=== PATIENT | female | born 1955 | race American Indian/Alaskan Native ===

== ENCOUNTER 2017-06-16 16:14 | Emergency (ER) | payer MEDICARE ==
--- NOTE | 2017-06-16 18:57 | Emergency Department Report ---
ED General Adult HPI - General Chief complaint: Weakness Stated complaint: GENERAL WEAKNESS Time Seen by Provider: 06/16/17 18:46 Source: EMS (ems notes not available at time of chart dictation), RN notes reviewed Mode of arrival: Stretcher Limitations: Other (patient is awake, follows commands, is profoundly dysarthric , cannot offer any history, there is no family available for corroborating information, there is no enclosed information from her personal group home) - History of Present Illness Initial comments: Patient arrived only with list of her prescription medications. This is a 62-year-old female who was previously unknown to me, has a history of hypertension, end-stage renal disease (enclosed paperwork does not clarify who her display designer is, and it does not clarify what today's the patient receives dialysis." Patient may also have a history of dementia. Patient is sent to the ER from personal group home for weakness, debility, decreased ability to ambulate. The patient is awake, and follows commands, and is able to indicate that she has no headache, neck pain, chest pain, abdominal pain, or urinary symptoms. Given that she is nonverbal, the patient is unable to elaborate on exacerbating or relieving factors. -: days(s) Consistency: constant Improves with: other (as per history of present illness) Worsens with: other (history of present illness) Associated Symptoms: confusion, weakness - Related Data Home Medications Medication Instructions Recorded Confirmed Last Taken Aspirin/Dipyridamole [Aggrenox] 1 cap PO BID 06/16/17 06/16/17 06/15/17 Cinacalcet HCl [Sensipar] 60 mg PO DAILY 06/16/17 06/16/17 06/15/17 Donepezil [Aricept] 10 mg PO DAILY 06/16/17 06/16/17 06/15/17 Ergocalciferol(Vitamin D2)(Nf) 50,000 units PO QMONTH 06/16/17 06/16/17 06/15/17 [Vitamin D (Nf)] Fluticasone [Flonase] 1 spray INNOSTRIL DAILY 06/16/17 06/16/17 06/15/17 Gabapentin [Neurontin] 100 mg PO BID 06/16/17 06/16/17 06/15/17 Lisinopril [Zestril TAB] 20 mg PO DAILY 06/16/17 06/16/17 06/15/17 Loratadine [Claritin] 10 mg PO DAILY 06/16/17 06/16/17 06/15/17 Memantine [Namenda] 10 mg PO BID 06/16/17 06/16/17 06/15/17 PARoxetine [Paxil] 10 mg PO DAILY 06/16/17 06/16/17 06/15/17 Sevelamer Carbonate [Renvela] 1,600 mg PO TID 06/16/17 06/16/17 06/15/17 Simvastatin [Zocor TAB] 40 mg PO DAILY 06/16/17 06/16/17 06/15/17 Vit B Cplx #11/FA/C/Biot/Zn Ox 1 tab PO DAILY 06/16/17 06/16/17 06/15/17 [Dialyvite with Zinc Tablet] Allergies Allergy/AdvReac Type Severity Reaction Status Date / Time No Known Allergies Allergy Verified 06/16/17 19:55 ED Review of Systems ROS: Stated complaint: GENERAL WEAKNESS Other details as noted in HPI Comment: Unobtainable due to pts medical conditions ED Past Medical Hx - Past Medical History Previous Medical History?: Yes Hx CVA: Yes Additional medical history: MELISSA - Surgical History Additional Surgical History: MELISSA - Social History Smoking Status: Unknown if ever smoked - Medications Home Medications: Home Medications Medication Instructions Recorded Confirmed Last Taken Type Aspirin/Dipyridamole [Aggrenox] 1 cap PO BID 06/16/17 06/16/17 06/15/17 History Cinacalcet HCl [Sensipar] 60 mg PO DAILY 06/16/17 06/16/17 06/15/17 History Donepezil [Aricept] 10 mg PO DAILY 06/16/17 06/16/17 06/15/17 History Ergocalciferol(Vitamin D2)(Nf) 50,000 units PO QMONTH 06/16/17 06/16/17 History [Vitamin D (Nf)] Fluticasone [Flonase] 1 spray INNOSTRIL DAILY 06/16/17 06/16/17 06/15/17 History Gabapentin [Neurontin] 100 mg PO BID 06/16/17 06/16/17 06/15/17 History Lisinopril [Zestril TAB] 20 mg PO DAILY 06/16/17 06/16/17 06/15/17 History Loratadine [Claritin] 10 mg PO DAILY 06/16/17 06/16/17 06/15/17 History Memantine [Namenda] 10 mg PO BID 06/16/17 06/16/17 06/15/17 History PARoxetine [Paxil] 10 mg PO DAILY 06/16/17 06/16/17 06/15/17 History Sevelamer Carbonate [Renvela] 1,600 mg PO TID 06/16/17 06/16/17 06/15/17 History Simvastatin [Zocor TAB] 40 mg PO DAILY 06/16/17 06/16/17 06/15/17 History Vit B Cplx #11/FA/C/Biot/Zn Ox 1 tab PO DAILY 06/16/17 06/16/17 06/15/17 History [Dialyvite with Zinc Tablet] ED Physical Exam - General Limitations: Physical Limitation, Other (as per history of present illness) General appearance: alert - Eye Eye exam: Present: normal appearance, EOMI - ENT ENT exam: Present: mucous membranes dry - Neck Neck exam: Present: normal inspection, full ROM. Absent: tenderness, meningismus - Respiratory Respiratory exam: Present: normal lung sounds bilaterally. Absent: respiratory distress, chest wall tenderness - Cardiovascular Cardiovascular Exam: Present: regular rate, normal rhythm, normal heart sounds. Absent: bradycardia, tachycardia, irregular rhythm, systolic murmur, diastolic murmur, rubs, gallop - GI/Abdominal GI/Abdominal exam: Present: soft, normal bowel sounds. Absent: distended, tenderness, guarding, rebound, rigid, pulsatile mass - Extremities Exam Extremities exam: Present: normal inspection, other (left upper extremity AV fistula noted, appropriate thrill noted, no redness, pus or streaking) - Back Exam Back exam: Present: normal inspection. Absent: CVA tenderness (L) - Neurological Exam Neurological exam: Present: alert, motor sensory deficit (his weakness in the right upper and right lower extremity. Patient has 5 out of 5 strength left upper and left lower extremity, intact sensation to light touch left upper and left lower extremity, moderately dysarthric, no facial droop) - Psychiatric Psychiatric exam: Present: other (patient is dysarthric) - Skin Skin exam: Present: warm, dry, intact, normal color. Absent: rash ED Course Vital Signs 06/16/17 06/16/17 06/16/17 18:23 20:01 20:03 Temperature 98.8 F Pulse Rate 81 79 79 Respiratory 18 18 Rate Blood Pressure 151/80 Blood Pressure 156/78 [Right] O2 Sat by Pulse 95 97 Oximetry ED Medical Decision Making - Lab Data Result diagrams: 06/16/17 19:02 06/16/17 19:02 Vital Signs 06/16/17 06/16/17 06/16/17 18:23 20:01 20:03 Temperature 98.8 F Pulse Rate 81 79 79 Respiratory 18 18 Rate Blood Pressure 151/80 Blood Pressure 156/78 [Right] O2 Sat by Pulse 95 97 Oximetry Lab Results 06/16/17 06/16/17 06/16/17 Range/Units 19:02 19:02 19:02 WBC 7.7 (4.5-11.0) K/mm3 RBC 5.10 H (3.65-5.03) M/mm3 Hgb 13.2 (10.1-14.3) gm/dl Hct 43.1 H (30.3-42.9) % MCV 85 (79-97) fl MCH 26 L (28-32) pg MCHC 31 (30-34) % RDW 18.3 H (13.2-15.2) % Plt Count 414 (140-440) K/mm3 Lymph % (Auto) 12.0 L (13.4-35.0) % Jessamine % (Auto) 8.0 H (0.0-7.3) % Eos % (Auto) 1.0 (0.0-4.3) % Baso % (Auto) 1.1 (0.0-1.8) % Lymph # 0.9 L (1.2-5.4) K/mm3 Jessamine # 0.6 (0.0-0.8) K/mm3 Eos # 0.1 (0.0-0.4) K/mm3 Baso # 0.1 (0.0-0.1) K/mm3 Seg Neutrophils % 77.9 H (40.0-70.0) % Seg Neutrophils # 6.0 (1.8-7.7) K/mm3 PT 15.0 H (12.2-14.9) Sec. INR 1.12 (0.87-1.13) APTT 30.3 (24.2-36.6) Sec. Thrombin Time 18.3 (15.1-19.6) Sec. Sodium 143 (137-145) mmol/L Potassium 4.1 (3.6-5.0) mmol/L Chloride 95.9 L (98-107) mmol/L Carbon Dioxide 25 (22-30) mmol/L Anion Gap 26 mmol/L BUN 46 H (7-17) mg/dL Creatinine 6.6 H (0.7-1.2) mg/dL Estimated GFR 8 ml/min BUN/Creatinine Ratio 6.96 % Glucose 99 (65-100) mg/dL Calcium 8.8 (8.4-10.2) mg/dL Total Bilirubin 0.40 (0.1-1.2) mg/dL AST 17 (5-40) units/L ALT 8 (7-56) units/L Alkaline Phosphatase 315 H (35-129) units/L Total Creatine Kinase (30-135) units/L CK-MB (CK-2) (0.0-4.0) ng/mL CK-MB (CK-2) Rel Index (0-4) Troponin T (0.00-0.029) ng/mL Total Protein 7.9 (6.3-8.2) g/dL Albumin 3.5 L (3.9-5) g/dL Albumin/Globulin Ratio 0.8 % Triglycerides (2-149) mg/dL Cholesterol (50-199) mg/dL LDL Cholesterol Direct (50-130) mg/dL HDL Cholesterol (40-59) mg/dL Cholesterol/HDL Ratio % // Range/Units 19:02 WBC (4.5-11.0) K/mm3 RBC (3.65-5.03) M/mm3 Hgb (10.1-14.3) gm/dl Hct (30.3-42.9) % MCV (79-97) fl MCH (28-32) pg MCHC (30-34) % RDW (13.2-15.2) % Plt Count (140-440) K/mm3 Lymph % (Auto) (13.4-35.0) % Jessamine % (Auto) (0.0-7.3) % Eos % (Auto) (0.0-4.3) % Baso % (Auto) (0.0-1.8) % Lymph # (1.2-5.4) K/mm3 Jessamine # (0.0-0.8) K/mm3 Eos # (0.0-0.4) K/mm3 Baso # (0.0-0.1) K/mm3 Seg Neutrophils % (40.0-70.0) % Seg Neutrophils # (1.8-7.7) K/mm3 PT (12.2-14.9) Sec. INR (0.87-1.13) APTT (24.2-36.6) Sec. Thrombin Time (15.1-19.6) Sec. Sodium (137-145) mmol/L Potassium (3.6-5.0) mmol/L Chloride (98-107) mmol/L Carbon Dioxide (22-30) mmol/L Anion Gap mmol/L BUN (7-17) mg/dL Creatinine (0.7-1.2) mg/dL Estimated GFR ml/min BUN/Creatinine Ratio % Glucose (65-100) mg/dL Calcium (8.4-10.2) mg/dL Total Bilirubin (0.1-1.2) mg/dL AST (5-40) units/L ALT (7-56) units/L Alkaline Phosphatase (35-129) units/L Total Creatine Kinase 122 (30-135) units/L CK-MB (CK-2) 2.3 (0.0-4.0) ng/mL CK-MB (CK-2) Rel Index 1.8 (0-4) Troponin T 0.060 H (0.00-0.029) ng/mL Total Protein (6.3-8.2) g/dL Albumin (3.9-5) g/dL Albumin/Globulin Ratio % Triglycerides 130 (2-149) mg/dL Cholesterol 210 H (50-199) mg/dL LDL Cholesterol Direct 86 (50-130) mg/dL HDL Cholesterol 98 H (40-59) mg/dL Cholesterol/HDL Ratio 2.14 % - EKG Data -: EKG Interpreted by Ny - EKG Data 06/16/17 21:09 Normal sinus, left axis deviation, QTC prolonged at 479 ms, abnormal EKG, not morphologically consistent with systemic - Radiology Data Radiology results: report reviewed, image reviewed X-ray the chest is negative. Noncontrast CT scan of the brain demonstrates an hemorrhagic stroke, right- sided subdural CVA, left sided shift to 2 cm, dilatation of the left lateral ventricle. - Medical Decision Making Differential diagnosis: Stroke, pneumonia, urinary tract infection, electrolyte derangement Assessment and plan: 62-year-old female with a few days of progressive weakness , laboratory studies demonstrate renal insufficiency without hyperkalemia, urinalysis is pending at this time, CT scan demonstrates hemorrhagic stroke with left-sided shift. Patient is awake and following commands, has a GCS of 12 , she is given Desmopressin given her intracranial hemorrhage and renal insufficiency. Head of bed elevated to 30. Case discussed at Dr. Jayme Robison, neuro parts advisor except patient as a transfer, as this hospital does not have neurology, or neuro critical care or neurosurgery available for consultation. As per discussion with neurology, no need for antiepileptic drugs. Critical care attestation.: If time is entered above; I have spent that time in minutes in the direct care of this critically ill patient, excluding procedure time. ED Disposition Clinical Impression: Dysphagia, Renal insufficiency, Hemorrhagic cerebrovascular accident (CVA) Disposition: [id number] [facility] IP Is pt being admited?: Yes Condition: Critical Referrals: PRIMARY CARE, [Primary Care Provider] - 3-5 Days
--- NOTE | 2017-06-16 19:29 | XRay Report ---
FINAL REPORT PROCEDURE: XR CHEST 1V AP TECHNIQUE: Chest radiograph anteroposterior view. CPT 46867 HISTORY: DYSPNEA COMPARISON: No prior studies are available for comparison. FINDINGS: Heart: Normal. Mediastinum/Vessels: Normal. Lungs/Pleural space: Normal. Bony thorax: No acute osseous abnormality. Life support devices: None. IMPRESSION: No acute cardiopulmonary abnormality. Follow-up PA and lateral views of the chest may be useful if symptoms persist.
[2017-06-16 19:41] LABS: Basophils % (Auto) 1.1 % (0.0-1.8); Mean Corpuscular HGB Conc 31 % (30-34); Mean Corpuscular Volume 85 fl (79-97); Platelet Count 414 K/mm3 (140-440); Red Cell Distribution Width 18.3 % (13.2-15.2); White Blood Count 7.7 K/mm3 (4.5-11.0)
[2017-06-16 19:48] LABS: Hematocrit 43.1 % (30.3-42.9); Hemoglobin 13.2 gm/dl (10.1-14.3); Mean Corpuscular Hemoglobin 26 pg (28-32)
[2017-06-16 19:52] LABS: INR 1.12 (0.87-1.13)
[2017-06-16 19:53] LABS: Creatine Kinase MB 2.3 ng/mL (0.0-4.0); Partial Thromboplastin Time 30.3 Sec. (24.2-36.6)
[2017-06-16 19:54] LABS: Albumin 3.5 g/dL (3.9-5); Albumin/Globulin Ratio 0.8 %; BUN/Creatinine Ratio 6.96; Bilirubin,Total 0.4 mg/dL (0.1-1.2); Calcium 8.8 mg/dL (8.4-10.2); Chloride 95.9 mmol/L (98-107); Potassium 4.1 mmol/L (3.6-5.0); Total Protein 7.9 g/dL (6.3-8.2)
[2017-06-16] MEDS ORDERED: DDAVP IV ONE ×2 (20:20→21:00)
--- NOTE | 2017-06-16 20:24 | Cat Scan Report ---
FINAL REPORT PROCEDURE: CT HEAD/BRAIN WO CON TECHNIQUE: Computerized tomography of the head was performed without contrast material. HISTORY: suspected stroke COMPARISON: No prior studies are available for comparison. FINDINGS: Large right-sided subdural hematoma has mixed subacute and acute blood. There is midline shift to the left of 2 cm and dilation of the left lateral ventricle. The hematoma measures approximately 2.8 cm in greatest width in the frontal region. Moderate periventricular ischemic changes are suspected on the left or this could be transependymal flow of fluid. Fourth ventricle and cerebellar tonsils appear normal. IMPRESSION: Large right-sided subdural hematoma has mixed subacute and acute blood. There is midline shift to the left of 2 cm and dilation of the left lateral ventricle. Critical results were discussed with Dr. Woodard at 8:19 p.m. Eastern time on June 16, 2017.
[2017-06-16] MEDS ORDERED: NACL 0.9% IV ONE (21:00)
[2017-06-16 21:56] VITALS: BP 143/87
[2017-06-16 22:09] LABS: Bacteria,Urine 1+ /HPF (Negative); Bilirubin,Urine NEG (Negative); Blood,Urine MOD (Negative); Ketones,Urine TR mg/dL (Negative); Leukocyte Esterase,Urine LG (Negative); Mucus,Urine FEW /HPF; Nitrite,Urine NEG (Negative); Urobilinogen,Urine < 2.0 mg/dL (<2.0)
[2017-06-16 22:13] LABS: WBC,Urine > 182.0 /HPF (0.0-6.0)
== END 2017-06-16 22:34 | disposition short-term general hospital (02) ==
LOC: ED 16:14
DX: N28.9 Disorder of kidney and ureter, unspecified (principal); R13.10 Dysphagia, unspecified; I63.9 Cerebral infarction, unspecified
CPT/HCPCS: 36415; 70450; 71010; 80053; 80061; 81001; 82550; 82553; 83880; 84484; 85025; 85610; 85670; 85730; 87086; 93005; 93010; 96365; 99285; J2597; 87186